=== PATIENT | male | born 1955 | race Two or more races ===

== ENCOUNTER 2023-03-04 17:27 | Emergency (ER) | payer BC ==
[2023-03-04 17:38] VITALS: TEMP 98.3; BMI 25.1
[2023-03-04 18:04] VITALS: RESP 16
[2023-03-04 19:04] LABS: BASO % 0.9 % (0-2.0); EOS % 2.2 % (0-4.5); HEMATOCRIT 39.2 % (35.4-49); HEMOGLOBIN 12.1 GM/dL (11.7-16.9); LYMPH % 22.9 % (8-40); MCH 21.4 pg (25.7-33.7); MCHC 30.8 g/dl (32.0-35.9); MEAN CELL VOLUME 69.5 fl (80-96); MEAN PLT VOLUME 8.6 fl (7.5-11.1); MONO % 7.7 % (3.8-10.2); NEUT % 66.3 % (42.8-82.8); PLATELET COUNT 230 10^3/uL (134-434); RBC 5.64 M/mm3 (4.00-5.60); RDW 18.5 % (11.9-15.9); WHITE BLOOD COUNT 5.6 K/mm3 (4.0-10.0)
[2023-03-04 19:33] LABS: POTASSIUM 4.5 mmol/L (3.5-5.1)
[2023-03-04 19:36] LABS: ALBUMIN 4.3 g/dl (3.4-5.0); BLOOD UREA NITROGEN 15.2 mg/dL (7-18); CALCIUM 9.3 mg/dL (8.5-10.1)
[2023-03-04 19:40] LABS: CREATININE 0.8 mg/dL (0.55-1.3)
[2023-03-04 19:41] LABS: BILIRUBIN,TOTAL 1.6 mg/dL (0.2-1); TOT PROT 7.4 g/dl (6.4-8.2)
[2023-03-04 20:33] LABS: ANISOCYTOSIS 3+; MACROCYTOSIS 0; OVALOCYTE 1+
[2023-03-04 21:35] VITALS: BP 132/80; PULSE 88
== END 2023-03-04 21:36 | disposition home or self-care (01) ==
LOC: JER 17:27
DX: R06.02 Shortness of breath (principal)
CPT/HCPCS: 36415; 71045-TC-FY; 80053; 82962; 84484; 85025; 93005; 93010; 99285-25